=== PATIENT | female | born 1955 | race Caucasian/White ===

== ENCOUNTER → 2016-10-25 | Outpatient (CLI) | payer BC ==
--- NOTE | 2016-10-25 16:31 | REPMRS ---
Patient History The patient states she had a clinical breast exam in 10/2016. Patient is postmenopausal and has history of other cancer at age 48. Family history of endometrial cancer in maternal aunt at age 50 or over. Digital Woman Screen Mammo: October 25, 2016 - Exam #: [id number] Bilateral CC and MLO view(s) were taken. Technologist: Anita Quintana, Technologist Prior study comparison: May 10, 2015, digital woman screen mammo performed at [facility]. May 04, 2014, digital woman screen mammo performed at [facility] to [facility]. FINDINGS: There are scattered fibroglandular densities. There has been no change in the appearance of the mammogram from the prior studies. There is a mild amount of residual fibroglandular tissue which is fairly symmetric. There is no interval development of dominant mass, architectural distortion, or clustered microcalcification suggestive of malignancy. ASSESSMENT: BI-RADS/ACR category 1 mammogram. Negative. Recommendation Routine screening mammogram in 1 year (for women over age 40). This mammogram was interpreted with the aid of an FDA-approved computer-aided dectection system. Electronically Signed By: Jef Mendez MD 10/25/16 [id number]
== END ==
LOC: M WHC 14:22
PROVIDERS: ATTEND Nurse Practitioner Family
DX: Z12.31 Encounter for screening mammogram for malignant neoplasm of breast (principal); Z78.0 Asymptomatic menopausal state; Z80.49 Family history of malignant neoplasm of other genital organs; Z85.9 Personal history of malignant neoplasm, unspecified

== ENCOUNTER → 2016-10-25 | Outpatient (REF) | payer BC | LOC: M SFHCWAGY 15:11 | PROVIDERS: ATTEND Nurse Practitioner Family | DX: Z12.4 Encounter for screening for malignant neoplasm of cervix (principal) ==

== ENCOUNTER → 2016-11-08 | Outpatient (CLI) | payer BC ==
--- NOTE | 2016-11-08 10:24 | REP ---
Clinical: Lower abdominal and pelvic pain. Technique: Transabdominal pelvic ultrasound followed by transvaginal examination for better evaluation of the endometrium and adnexa. Findings: Bladder is normal and measures 12.9 x 7.1 x 9.7 cm. Anteverted heterogeneous uterus measures 5.6 x 2.8 x 3.6 cm and includes 1.6 cm submucosal fibroid. The endometrial complex is difficult to completely evaluate although visualized portions measure up to 5.8 mm. No evidence for endocervical fluid. Right ovary not visualized. Left ovary appears normal and measures 2.0 x 1.0 x 1.6 cm. No pelvic fluid or adnexal mass lesion. Impression: 1.6 cm posterior submucosal lesion likely representing fibroid although the endometrium is incompletely evaluated due to heterogeneity and differential diagnosis may include endometrial polyp and less likely neoplasm. Consider follow-up examination if necessary.
== END ==
LOC: M WHC 09:04
PROVIDERS: ATTEND Nurse Practitioner Family
DX: R10.32 Left lower quadrant pain (principal); N85.4 Malposition of uterus; D25.9 Leiomyoma of uterus, unspecified

== ENCOUNTER → 2017-07-09 | Outpatient (CLI) | payer BC ==
[~2017-07-09] MED LIST: GASTROGRAFIN SOLUTION 30ML (Q9963) As Ordered; ISOVUE-370 76% 100ML VIAL (Q9967) As Ordered
== END ==
LOC: M RAD 16:20
DX: C34.90 Malignant neoplasm of unspecified part of unspecified bronchus or lung (principal)
CPT/HCPCS: Q9963

== ENCOUNTER 2017-07-29 19:18 | Inpatient (IN) | payer BC ==
[2017-07-29] MEDS: NS 1,000 ML IV (20:00)
[2017-07-29] MEDS: ONDANSETRON 4MG/2ML VIAL (J2405) IV (20:37)
[2017-07-29] MEDS: MORPHINE 4 MG/ML 1ML VIAL IV (20:38)
[2017-07-29 20:43] LABS: HEMATOCRIT 24.5 % (36.0-47.0); HEMOGLOBIN 8.4 g/dl (12.0-16.0); MEAN CORPUSCULAR HEMOGLOBIN 31.1 pg (27.0-33.0); MEAN CORPUSCULAR HGB CONC 34.3 g/dl (32.0-36.5); MEAN CORPUSCULAR VOLUME 90.7 fl (80.0-96.0); RED CELL DISTRIBUTION WIDTH 17.2 % (11.5-14.5); WHITE BLOOD COUNT 2.4 10^3/uL (4.0-10.0)
[2017-07-29 20:54] LABS: INR 1.25; PROTHROMBIN TIME 15.9 SECONDS (12.4-14.5)
[2017-07-29 20:55] LABS: PARTIAL THROMBOPLASTIN TIME 41.7 SECONDS (26.8-37.9)
[2017-07-29 21:02] LABS: ADD MANUAL DIFFER YES; DIFF SLIDE NUMBER 150; PLATELET COUNT, AUTOMATED 17 10^3/uL (150-450); POS COUNT POS FLAG; POSITIVE MORPH POS FLAG
[2017-07-29 21:03] LABS: IMMATURE PLATELET FRACTION % 4.4 % (0.0-9.6)
[2017-07-29 21:09] LABS: ALBUMIN/GLOBULIN RATIO 0.81 (1.00-1.93); ALKALINE PHOSPHATASE 102 U/L (45-117); ALT/SGPT 21 U/L (12-78); ANION GAP 9 MEQ/L (8-16); AST/SGOT 8 U/L (7-37); BILIRUBIN,DIRECT < 0.1 MG/DL (0.0-0.2); BILIRUBIN,TOTAL 0.5 MG/DL (0.2-1.0); BLOOD UREA NITROGEN 15 MG/DL (7-18); CALCIUM LEVEL 8.1 MG/DL (8.8-10.2); CARBON DIOXIDE LEVEL 23 MEQ/L (21-32); CHLORIDE LEVEL 104 MEQ/L (98-107); CREATININE FOR GFR 0.68 MG/DL (0.55-1.30); GLOMERULAR FILTRATION RATE > 60.0 (>45); GLUCOSE, FASTING 177 MG/DL (70-100); LIPASE 54 U/L (73-393); POTASSIUM SERUM 3.4 MEQ/L (3.5-5.1); SODIUM LEVEL 136 MEQ/L (136-145); TOTAL PROTEIN 6.7 GM/DL (6.4-8.2)
[2017-07-29 21:13] LABS: EOSINOPHILS 6 % (0-5); LYMPHOCYTES 15 % (16-52); MONOCYTES 13 % (0-8); NEUTROPHILS 66 % (35-75); PLATELET ESTIMATE MARKED DECREASE (NORMAL); TOXIC GRANULATION 1+
[2017-07-29 21:13] LABS: LACTIC ACID SEPSIS PROTOCOL 2.2 MMOL/L (0.4-2.0)
[2017-07-29] MEDS ORDERED: ISOVUE-370 76% 100ML VIAL (Q9967) As Ordered (21:13)
[2017-07-29 21:14] LABS: ANISOCYTOSIS 1+
[2017-07-29 21:26] LABS: CPK CREATINE PHOSPHOKINASE 23 U/L (26-192); MB/CK RELATIVE INDEX 4.34 (< OR =4); TROPONIN I < 0.02 NG/ML (< 0.10)
[2017-07-29] MEDS: CEFEPIME HCL 1 GM in D5W MINI-BAG PLUS 50 ML IV (22:49)
[2017-07-29] MEDS ORDERED: NS 1,000 ML IV (23:41)
[2017-07-29] MEDS ORDERED: ONDANSETRON 4MG/2ML VIAL (J2405) IV (23:45)
[2017-07-29] MEDS: metroNIDAZOLE 500 MG in APPROPRIATE DILUENT 1 EA IV (23:51)
[2017-07-30] MEDS ORDERED: GLUCOSE 4 GM CHEW TABLET PO (00:30)
[2017-07-30] MEDS ORDERED: DEXTROSE 50% 50 ML SYRINGE IV (00:30)
[2017-07-30] MEDS: SODIUM CHLORIDE 0.9% 1000 ML IV (00:30)
[2017-07-30] MEDS ORDERED: GLUCAGON FOR INJ 1 MG VIAL (J1610) SC (00:30)
[2017-07-30] MEDS: VANCOMYCIN HCL 1,000 MG, VIAL MATE ADAPTER 1 EACH in D5W 250 ML IV ×2 (01:12→09:06)
[2017-07-30] MEDS: ATORVASTATIN 20 MG TAB PO ×2 (02:40→20:06)
[2017-07-30] MEDS: MORPHINE 2 MG/ML 1ML SYRINGE IV ×3 (02:44→20:07)
[2017-07-30 02:45] LABS: KETONE, URINE AUTO RFX NEGATIVE (NEGATIVE); LEUKOCYTE ESTERASE UR AUTO RFX NEGATIVE (NEGATIVE); NITRITE, URINE AUTO RFX NEGATIVE (NEGATIVE); RBC, URINE AUTO RFX 1 /HPF (0-3); SQUAM EPITHELIAL CELL UR AURFX 0 /HPF (0-6); WBC, URINE AUTO RFX 1 /HPF (0-3)
[2017-07-30 03:00] LABS: IMMEDIATE SPIN CROSSMATCH 1 1
[2017-07-30] MEDS: KCL 40MEQ in NS 1000ML 1,000 ML IV ×2 (03:10→20:08)
[2017-07-30] MEDS: LEVOTHYROXINE 50MCG TABLET (0.05MG) PO (06:37)
[2017-07-30 07:14] LABS: HEMATOCRIT 23.1 % (36.0-47.0); HEMOGLOBIN 7.8 g/dl (12.0-16.0); MEAN CORPUSCULAR HGB CONC 33.8 g/dl (32.0-36.5); MEAN CORPUSCULAR VOLUME 91.7 fl (80.0-96.0); RED BLOOD COUNT 2.52 10^6/uL (4.00-5.40); WHITE BLOOD COUNT 2.2 10^3/uL (4.0-10.0)
[2017-07-30 07:16] LABS: PLATELET COUNT, AUTOMATED 16 10^3/uL (150-450); POS COUNT POS FLAG; POSITIVE MORPH POS FLAG
[2017-07-30 07:17] LABS: ADD MANUAL DIFFER YES; DIFF SLIDE NUMBER 96
[2017-07-30 07:42] LABS: ANISOCYTOSIS 2+; BANDS 5 % (< 11); EOSINOPHILS 14 % (0-5); LYMPHOCYTES 15 % (16-52); METAMYELOCYTES 2 % (0-0); MONOCYTES 10 % (0-8); MYELOCYTES 5 % (0-0); NEUTROPHILS 49 % (35-75); PLATELET ESTIMATE MARKED DECREASE (NORMAL); TEAR DROP CELLS 1+
[2017-07-30 07:45] LABS: ALBUMIN 2.5 GM/DL (3.2-5.2); ALBUMIN/GLOBULIN RATIO 0.96 (1.00-1.93); ALKALINE PHOSPHATASE 84 U/L (45-117); ALT/SGPT 21 U/L (12-78); ANION GAP 7 MEQ/L (8-16); AST/SGOT 7 U/L (7-37); BILIRUBIN,TOTAL 0.8 MG/DL (0.2-1.0); BLOOD UREA NITROGEN 10 MG/DL (7-18); CALCIUM LEVEL 7.2 MG/DL (8.8-10.2); CARBON DIOXIDE LEVEL 25 MEQ/L (21-32); CHLORIDE LEVEL 109 MEQ/L (98-107); CREATININE FOR GFR 0.58 MG/DL (0.55-1.30); GLOMERULAR FILTRATION RATE > 60.0 (>45); GLUCOSE, FASTING 158 MG/DL (70-100); POTASSIUM SERUM 3.5 MEQ/L (3.5-5.1); SODIUM LEVEL 141 MEQ/L (136-145); TOTAL PROTEIN 5.1 GM/DL (6.4-8.2)
[2017-07-30] MEDS: OMEPRAZOLE 20 MG CAP PO (07:54)
[2017-07-30] MEDS: HumaLOG INSULIN (NovoLOG) PER UNIT SC ×4 (07:54→20:15)
[2017-07-30] MEDS: metroNIDAZOLE 500 MG in APPROPRIATE DILUENT 1 EA IV ×2 (07:55→14:59)
[2017-07-30 07:56] LABS: BEDSIDE GLUCOSE 176 MG/DL (80-115)
[2017-07-30] MEDS: CEFEPIME HCL 2 GM in D5W MINI-BAG PLUS 50 ML IV ×2 (10:44→17:59)
[2017-07-30] MEDS ORDERED: CEFEPIME HCL 2 GM in D5W MINI-BAG PLUS 50 ML IV (11:00)
[2017-07-30 11:42] LABS: IMMEDIATE SPIN CROSSMATCH 1
[2017-07-30 11:54] LABS: BEDSIDE GLUCOSE 160 MG/DL (80-115)
[2017-07-30] MEDS ORDERED: SODIUM CHLORIDE 0.9% INJ 10 ML SYR IV (15:15)
[2017-07-30 16:54] LABS: BEDSIDE GLUCOSE 106 MG/DL (80-115)
[2017-07-30 18:10] LABS: BASO % 0.4 % (0.0-1.0); EOS # 0.3 10^3/uL (0.0-0.50); EOS % 10.2 % (0.0-3.0); HEMATOCRIT 25.8 % (36.0-47.0); HEMOGLOBIN 8.7 g/dl (12.0-16.0); IMMATURE GRANULOCYTE % 1.5 % (0-0); LYMPH # 0.6 10^3/uL (1.5-4.5); LYMPH % 23.3 % (24.0-44.0); MEAN CORPUSCULAR HEMOGLOBIN 30.4 pg (27.0-33.0); MEAN CORPUSCULAR HGB CONC 33.7 g/dl (32.0-36.5); MEAN CORPUSCULAR VOLUME 90.2 fl (80.0-96.0); MONO # 0.4 10^3/uL (0.0-0.8); MONO % 14.3 % (0.0-5.0); NEUTROPHILS # 1.3 10^3/uL (1.8-7.7); NEUTROPHILS % 50.3 % (36.0-66.0); RED BLOOD COUNT 2.86 10^6/uL (4.00-5.40); RED CELL DISTRIBUTION WIDTH 17.2 % (11.5-14.5); WHITE BLOOD COUNT 2.7 10^3/uL (4.0-10.0)
[2017-07-30 18:17] LABS: PLATELET COUNT, AUTOMATED 26 10^3/uL (150-450)
[2017-07-30 18:18] LABS: ADD MORPHOLOGY? NO; POS COUNT POS FLAG
[2017-07-30] MEDS: SODIUM CHLORIDE 0.9% INJ 10 ML SYR IV (20:07)
[2017-07-30 20:38] LABS: BEDSIDE GLUCOSE 130 MG/DL (80-115)
[2017-07-31] MEDS: KCL 40MEQ in NS 1000ML 1,000 ML IV ×3 (00:18→20:18)
[2017-07-31] MEDS: metroNIDAZOLE 500 MG in APPROPRIATE DILUENT 1 EA IV ×3 (00:18→15:03)
[2017-07-31] MEDS: CEFEPIME HCL 2 GM in D5W MINI-BAG PLUS 50 ML IV ×3 (03:47→18:21)
[2017-07-31 05:26] LABS: EOS # 0.2 10^3/uL (0.0-0.50); EOS % 8.3 % (0.0-3.0); HEMATOCRIT 23.7 % (36.0-47.0); HEMOGLOBIN 7.9 g/dl (12.0-16.0); IMMATURE GRANULOCYTE # 0.1 10^3/uL (0-0); IMMATURE GRANULOCYTE % 2.9 % (0-0); LYMPH # 0.6 10^3/uL (1.5-4.5); LYMPH % 22.8 % (24.0-44.0); MEAN CORPUSCULAR HEMOGLOBIN 30.6 pg (27.0-33.0); MEAN CORPUSCULAR HGB CONC 33.3 g/dl (32.0-36.5); MEAN CORPUSCULAR VOLUME 91.9 fl (80.0-96.0); MONO # 0.4 10^3/uL (0.0-0.8); MONO % 14.9 % (0.0-5.0); NEUTROPHILS # 1.2 10^3/uL (1.8-7.7); NEUTROPHILS % 51.1 % (36.0-66.0); RED BLOOD COUNT 2.58 10^6/uL (4.00-5.40); RED CELL DISTRIBUTION WIDTH 17.6 % (11.5-14.5); WHITE BLOOD COUNT 2.4 10^3/uL (4.0-10.0)
[2017-07-31 05:28] LABS: PLATELET COUNT, AUTOMATED 26 10^3/uL (150-450); POS COUNT POS FLAG
[2017-07-31 05:29] LABS: IMMATURE PLATELET FRACTION % 3.3 % (0.0-9.6)
[2017-07-31 05:41] LABS: ALBUMIN 2.4 GM/DL (3.2-5.2); ALBUMIN/GLOBULIN RATIO 0.83 (1.00-1.93); ALKALINE PHOSPHATASE 75 U/L (45-117); ALT/SGPT 19 U/L (12-78); ANION GAP 6 MEQ/L (8-16); AST/SGOT 11 U/L (7-37); BILIRUBIN,TOTAL 0.4 MG/DL (0.2-1.0); BLOOD UREA NITROGEN 8 MG/DL (7-18); CALCIUM LEVEL 7.7 MG/DL (8.8-10.2); CARBON DIOXIDE LEVEL 26 MEQ/L (21-32); CHLORIDE LEVEL 113 MEQ/L (98-107); CREATININE FOR GFR 0.53 MG/DL (0.55-1.30); GLOMERULAR FILTRATION RATE > 60.0 (>45); GLUCOSE, FASTING 130 MG/DL (70-100); MAGNESIUM LEVEL 1.6 MG/DL (1.8-2.4); POTASSIUM SERUM 3.8 MEQ/L (3.5-5.1); SODIUM LEVEL 145 MEQ/L (136-145); TOTAL PROTEIN 5.3 GM/DL (6.4-8.2)
[2017-07-31] MEDS: LEVOTHYROXINE 50MCG TABLET (0.05MG) PO (06:39)
[2017-07-31] MEDS: HumaLOG INSULIN (NovoLOG) PER UNIT SC ×4 (07:37→20:21)
[2017-07-31] MEDS: OMEPRAZOLE 20 MG CAP PO (08:33)
[2017-07-31] MEDS: MAG SULF 1GM/100ML (MAG RUN) 1 GM in APPROPRIATE DILUENT 1 EA IV (08:55)
[2017-07-31 11:50] LABS: BEDSIDE GLUCOSE 171 MG/DL (80-115)
[2017-07-31 12:14] LABS: HEMATOCRIT 26.3 % (36.0-47.0); HEMOGLOBIN 8.8 g/dl (12.0-16.0); MEAN CORPUSCULAR HGB CONC 33.5 g/dl (32.0-36.5); MEAN CORPUSCULAR VOLUME 92.6 fl (80.0-96.0); RED BLOOD COUNT 2.84 10^6/uL (4.00-5.40); RED CELL DISTRIBUTION WIDTH 17.3 % (11.5-14.5); WHITE BLOOD COUNT 3.6 10^3/uL (4.0-10.0)
[2017-07-31 12:17] LABS: PLATELET COUNT, AUTOMATED 30 10^3/uL (150-450)
[2017-07-31 17:13] LABS: BEDSIDE GLUCOSE 108 MG/DL (80-115)
[2017-07-31] MEDS: ATORVASTATIN 20 MG TAB PO (20:17)
[2017-07-31 20:33] LABS: BEDSIDE GLUCOSE 130 MG/DL (80-115)
[2017-08-01] MEDS: KCL 40MEQ in NS 1000ML 1,000 ML IV (00:17)
[2017-08-01] MEDS: metroNIDAZOLE 500 MG in APPROPRIATE DILUENT 1 EA IV ×4 (00:17→23:29)
[2017-08-01] MEDS: CEFEPIME HCL 2 GM in D5W MINI-BAG PLUS 50 ML IV ×3 (03:43→19:03)
[2017-08-01] MEDS: LEVOTHYROXINE 50MCG TABLET (0.05MG) PO (05:31)
[2017-08-01 05:51] LABS: BASO % 0.3 % (0.0-1.0); EOS # 0.1 10^3/uL (0.0-0.50); EOS % 4.2 % (0.0-3.0); HEMATOCRIT 23.8 % (36.0-47.0); IMMATURE GRANULOCYTE # 0.1 10^3/uL (0-0); IMMATURE GRANULOCYTE % 3.9 % (0-0); LYMPH # 0.7 10^3/uL (1.5-4.5); LYMPH % 19.9 % (24.0-44.0); MEAN CORPUSCULAR HGB CONC 33.6 g/dl (32.0-36.5); MEAN CORPUSCULAR VOLUME 92.2 fl (80.0-96.0); MONO # 0.6 10^3/uL (0.0-0.8); MONO % 16.6 % (0.0-5.0); NEUTROPHILS # 1.8 10^3/uL (1.8-7.7); NEUTROPHILS % 55.1 % (36.0-66.0); RED BLOOD COUNT 2.58 10^6/uL (4.00-5.40); RED CELL DISTRIBUTION WIDTH 17.3 % (11.5-14.5); WHITE BLOOD COUNT 3.3 10^3/uL (4.0-10.0)
[2017-08-01 05:58] LABS: PLATELET COUNT, AUTOMATED 35 10^3/uL (150-450)
[2017-08-01 05:59] LABS: IMMATURE PLATELET FRACTION % 3.5 % (0.0-9.6)
[2017-08-01 06:15] LABS: ALBUMIN 2.8 GM/DL (3.2-5.2); ALBUMIN/GLOBULIN RATIO 1.12 (1.00-1.93); ALKALINE PHOSPHATASE 85 U/L (45-117); ALT/SGPT 18 U/L (12-78); ANION GAP 8 MEQ/L (8-16); AST/SGOT 14 U/L (7-37); BILIRUBIN,TOTAL 0.5 MG/DL (0.2-1.0); BLOOD UREA NITROGEN 4 MG/DL (7-18); CARBON DIOXIDE LEVEL 26 MEQ/L (21-32); CHLORIDE LEVEL 113 MEQ/L (98-107); CREATININE FOR GFR 0.51 MG/DL (0.55-1.30); GLOMERULAR FILTRATION RATE > 60.0 (>45); GLUCOSE, FASTING 133 MG/DL (70-100); MAGNESIUM LEVEL 1.8 MG/DL (1.8-2.4); POTASSIUM SERUM 4.1 MEQ/L (3.5-5.1); SODIUM LEVEL 147 MEQ/L (136-145); TOTAL PROTEIN 5.3 GM/DL (6.4-8.2)
[2017-08-01] MEDS: HumaLOG INSULIN (NovoLOG) PER UNIT SC ×4 (08:30→20:48)
[2017-08-01] MEDS: OMEPRAZOLE 20 MG CAP PO (08:30)
[2017-08-01] MEDS: SODIUM CHLORIDE 0.9% INJ 10 ML SYR IV (09:00)
[2017-08-01 12:24] LABS: BEDSIDE GLUCOSE 151 MG/DL (80-115)
[2017-08-01] MEDS ORDERED: SODIUM CHLORIDE 0.9% INJ 10 ML SYR IV (12:30)
[2017-08-01 17:20] LABS: BEDSIDE GLUCOSE 113 MG/DL (80-115)
[2017-08-01] MEDS: ATORVASTATIN 20 MG TAB PO (20:48)
[2017-08-01 21:07] LABS: BEDSIDE GLUCOSE 146 MG/DL (80-115)
[2017-08-02] MEDS: CEFEPIME HCL 2 GM in D5W MINI-BAG PLUS 50 ML IV (03:29)
[2017-08-02] MEDS: LEVOTHYROXINE 50MCG TABLET (0.05MG) PO (05:35)
[2017-08-02 05:47] LABS: HEMATOCRIT 25.2 % (36.0-47.0); HEMOGLOBIN 8.4 g/dl (12.0-16.0); MEAN CORPUSCULAR HEMOGLOBIN 30.5 pg (27.0-33.0); MEAN CORPUSCULAR HGB CONC 33.3 g/dl (32.0-36.5); MEAN CORPUSCULAR VOLUME 91.6 fl (80.0-96.0); RED BLOOD COUNT 2.75 10^6/uL (4.00-5.40); RED CELL DISTRIBUTION WIDTH 17.9 % (11.5-14.5); WHITE BLOOD COUNT 3.7 10^3/uL (4.0-10.0)
[2017-08-02 05:48] LABS: ADD MANUAL DIFFER YES; DIFF SLIDE NUMBER 43; PLATELET COUNT, AUTOMATED 45 10^3/uL (150-450); POS COUNT POS FLAG; POSITIVE MORPH POS FLAG
[2017-08-02 05:50] LABS: IMMATURE PLATELET FRACTION % 3.7 % (0.0-9.6)
[2017-08-02 06:36] LABS: ALBUMIN 2.9 GM/DL (3.2-5.2); ALBUMIN/GLOBULIN RATIO 1.12 (1.00-1.93); ALKALINE PHOSPHATASE 87 U/L (45-117); ALT/SGPT 28 U/L (12-78); ANION GAP 9 MEQ/L (8-16); AST/SGOT 26 U/L (7-37); BILIRUBIN,TOTAL 0.4 MG/DL (0.2-1.0); BLOOD UREA NITROGEN 4 MG/DL (7-18); CARBON DIOXIDE LEVEL 25 MEQ/L (21-32); CHLORIDE LEVEL 111 MEQ/L (98-107); CREATININE FOR GFR 0.56 MG/DL (0.55-1.30); GLOMERULAR FILTRATION RATE > 60.0 (>45); GLUCOSE, FASTING 145 MG/DL (70-100); MAGNESIUM LEVEL 1.7 MG/DL (1.8-2.4); POTASSIUM SERUM 3.7 MEQ/L (3.5-5.1); SODIUM LEVEL 145 MEQ/L (136-145); TOTAL PROTEIN 5.5 GM/DL (6.4-8.2)
[2017-08-02 07:13] LABS: BANDS 3 % (< 11); EOSINOPHILS 3 % (0-5); LYMPHOCYTES 11 % (16-52); METAMYELOCYTES 2 % (0-0); MONOCYTES 10 % (0-8); MYELOCYTES 2 % (0-0); NEUTROPHILS 69 % (35-75)
[2017-08-02 07:14] LABS: ANISOCYTOSIS 1+; POLYCHROMASIA 1+
[2017-08-02 07:15] LABS: PLATELET ESTIMATE MARKED DECREASE (NORMAL)
[2017-08-02] MEDS: OMEPRAZOLE 20 MG CAP PO (08:03)
[2017-08-02] MEDS: MAG SULF 1GM/100ML (MAG RUN) 1 GM in APPROPRIATE DILUENT 1 EA IV (08:04)
[2017-08-02] MEDS: metroNIDAZOLE 500 MG in APPROPRIATE DILUENT 1 EA IV (08:04)
[2017-08-02] MEDS: POTASSIUM CHLORIDE 10 MEQ SR TABLET PO (08:04)
[2017-08-02] MEDS: HumaLOG INSULIN (NovoLOG) PER UNIT SC (08:05)
[2017-08-02] MEDS: SODIUM CHLORIDE 0.9% INJ 10 ML SYR IV (10:43)
== END 2017-08-02 11:10 | disposition home or self-care (01) | DRG 249 ==
LOC: M PCU 07-30 02:22 → M ED 19:18 → M ED INP 23:41
PROC: 30253N1 (ICD-10-PCS; principal; 2017-07-30)
PROC: 30253R1 (ICD-10-PCS; 2017-07-30)
DX: K52.9 Noninfective gastroenteritis and colitis, unspecified (principal); D61.810 Antineoplastic chemotherapy induced pancytopenia; E11.51 Type 2 diabetes mellitus with diabetic peripheral angiopathy without gangrene; C34.90 Malignant neoplasm of unspecified part of unspecified bronchus or lung; E86.0 Dehydration; I48.91 Unspecified atrial fibrillation; I10 Essential (primary) hypertension; E03.9 Hypothyroidism, unspecified; E78.5 Hyperlipidemia, unspecified; K21.9 Gastro-esophageal reflux disease without esophagitis; H35.30 Unspecified macular degeneration; I25.10 Atherosclerotic heart disease of native coronary artery without angina pectoris; Z79.899 Other long term (current) drug therapy; Z87.891 Personal history of nicotine dependence; Z79.82 Long term (current) use of aspirin; Z79.01 Long term (current) use of anticoagulants; Z88.8 Allergy status to other drugs, medicaments and biological substances; E66.9 Obesity, unspecified; Z79.84 Long term (current) use of oral hypoglycemic drugs

== ENCOUNTER → 2018-03-08 | Outpatient (CLI) | payer MEDICARE, OTHER | LOC: M WHC 13:25 | DX: Z01.419 Encounter for gynecological examination (general) (routine) without abnormal findings (principal); Z12.31 Encounter for screening mammogram for malignant neoplasm of breast (principal); Z78.0 Asymptomatic menopausal state; Z85.118 Personal history of other malignant neoplasm of bronchus and lung; Z92.21 Personal history of antineoplastic chemotherapy; Z92.3 Personal history of irradiation; Z12.12 Encounter for screening for malignant neoplasm of rectum | CPT/HCPCS: 77067 ==